=== PATIENT | male | born 1995 | race Two or more races ===

== ENCOUNTER 2025-03-22 18:28 | Emergency (ER) | payer MEDICAID, SELFPAY ==
[2025-03-22 18:55] VITALS: BP 124/84; PULSE 64; RESP 20; TEMP 37; O2SAT 98
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
[2025-03-22] MEDS: HYDROcodone/APAP 5/325 TABLET 1 TAB PO (19:26)
[2025-03-22 19:57] VITALS: BP 116/76; PULSE 72; RESP 16; TEMP 36.8; O2SAT 98
== END 2025-03-22 20:00 | disposition home or self-care (01) ==
LOC: SERX 20:04
PROVIDERS: Emergency Provider Emergency Medicine
DX: T23.241A Burn of second degree of multiple right fingers (nail), including thumb, initial encounter (principal); T31.0 Burns involving less than 10% of body surface; X08.8XXA Exposure to other specified smoke, fire and flames, initial encounter
CPT/HCPCS: 99283; A9270